=== PATIENT | female | born 1975 | race American Indian/Alaskan Native ===

== ENCOUNTER 2020-08-02 05:46 | Emergency (ER) | payer SELFPAY ==
[2020-08-02] MEDS ORDERED: ASPIRIN 325 MG TAB PO ONE (06:05)
--- NOTE | 2020-08-02 06:50 | XRay Report ---
CHEST PA AND LATERAL VIEWS INDICATION: chest pain. COMPARISON: None. FINDINGS: Support devices: None. Heart: Within normal limits. Lungs/Pleura: No acute pulmonary or pleural findings. IMPRESSION: 1. No acute findings. Signer Name: Armin Austin MD Signed: 08/02/2020 6:46 AM Workstation Name: [id number]
[2020-08-02 07:15] LABS: Basophils # (Auto) 0.1 K/mm3 (0.0-0.1); Basophils % (Auto) 0.7 % (0.0-1.8); Eosinophils % (Auto) 0.5 % (0.0-4.3); Hematocrit 42.5 % (30.3-42.9); Hemoglobin 14.4 gm/dl (10.1-14.3); Lymphocytes # (Auto) 2.2 K/mm3 (1.2-5.4); Mean Corpuscular HGB Conc 34 % (30-34); Mean Corpuscular Volume 91 fl (79-97); Monocytes # (Auto) 0.8 K/mm3 (0.0-0.8); Platelet Count 246 K/mm3 (140-440); Red Blood Count 4.68 M/mm3 (3.65-5.03); Red Cell Distribution Width 13.6 % (13.2-15.2)
[2020-08-02 08:17] LABS: Alanine Aminotransferase 13 units/L (7-56); Albumin 4.1 g/dL (3.9-5); BUN/Creatinine Ratio 13; Blood Urea Nitrogen 15 mg/dL (7-17); Calcium 9.8 mg/dL (8.4-10.2); Hemolysis Index 5
--- NOTE | 2020-08-02 09:55 | Emergency Department Report ---
ED Chest Pain HPI - General Chief Complaint: Chest Pain Stated Complaint: CHEST PAIN Time Seen by Provider: 08/02/20 09:09 Source: patient, EMS Mode of arrival: Wheelchair Limitations: No Limitations - History of Present Illness Initial Comments: 45-year-old -[place] female patient presents with complaints of sudden onset of substernal chest pain starting around 4 AM. Patient states she was working and suddenly felt pain in her chest bilaterally. She describes the pain as squeezing and states it lasted for about 45 minutes. Patient was given nitroglycerin via EMS and brought into the ED. Patient states her pain was a 10/10 in severity initially, and now rates her pain as a 3/10 in severity. Patient states she feels she is having mild difficulty taking in deep breaths and that the pain in her chest worsens with deep inhalation. Past medical history includes DVT/PE approximately 5 years ago. No other past medical history per patient. She denies any family history of heart disease. Patient states long car ride to [place] approximately 6 weeks ago. She denies any cough/hemoptysis, fever/chills/sweats, or swelling in her legs. 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 MD Complaint: chest pain -: Sudden - Related Data Previous Rx's Medication Instructions Recorded Last Taken Type Naproxen 500 mg PO BID PRN #10 tablet 08/02/20 Unknown Rx Allergies Allergy/AdvReac Type Severity Reaction Status Date / Time IV contrast Allergy Hives Uncoded 08/02/20 05:59 Heart Score - HEART Score History: Slightly suspicious () EKG: Normal Age: 45-65 Risk factors: No known risk factors Troponin: < normal limit HEART Score: 1 - EKG Read Time Time EKG Completed: 06:04 EKG Read Time: 06:06 - Critical Actions Critical Actions: 0-3 pts:0.9-1.7%risk of adverse cardiac event.Candidate for discharge ED Review of Systems ROS: Stated complaint: CHEST PAIN Other details as noted in HPI Constitutional: denies: chills, diaphoresis, fever, weakness Respiratory: see HPI. denies: cough, orthopnea Cardiovascular: chest pain. denies: edema, syncope Gastrointestinal: denies: abdominal pain, nausea, vomiting Neurological: denies: headache, numbness, paresthesias Hematological/Lymphatic: denies: easy bleeding, easy bruising ED Past Medical Hx - Past Medical History Previous Medical History?: Yes Additional medical history: DVT BLE, 2016. Kidney stones - Surgical History Past Surgical History?: Yes Additional Surgical History: partial hysterectomy 2015. tubal ligation ?2000/2001. c-sect x2 - Social History Smoking Status: Never Smoker Substance Use Type: None - Medications Home Medications: Home Medications Medication Instructions Recorded Confirmed Last Taken Type Naproxen 500 mg PO BID PRN #10 tablet 08/02/20 Unknown Rx ED Physical Exam - General Limitations: No Limitations General appearance: alert, in no apparent distress - Head Head exam: Present: atraumatic, normocephalic, normal inspection - Eye Eye exam: Present: normal appearance. Absent: scleral icterus - Neck Neck exam: Present: normal inspection - Respiratory Respiratory exam: Present: normal lung sounds bilaterally. Absent: respiratory distress, chest wall tenderness, accessory muscle use - Cardiovascular Cardiovascular Exam: Present: regular rate, normal rhythm. Absent: systolic murmur, diastolic murmur, rubs, gallop - GI/Abdominal GI/Abdominal exam: Present: soft, normal bowel sounds. Absent: distended, tenderness, guarding, rebound, rigid - Extremities Exam Extremities exam: Present: calf tenderness (Mild bilateral; no swelling noted; normal pedal pulses noted) - Back Exam Back exam: Present: full ROM - Neurological Exam Neurological exam: Present: alert, oriented X3, normal gait - Psychiatric Psychiatric exam: Present: normal affect, normal mood - Skin Skin exam: Present: warm, dry, intact, normal color. Absent: rash, cyanosis, diaphoretic ED Course Vital Signs 08/02/20 08/02/20 05:51 13:14 Temperature 98.7 F Pulse Rate 78 80 Respiratory 18 18 Rate Blood Pressure 146/72 Blood Pressure 140/74 [Left] O2 Sat by Pulse 98 99 Oximetry ED Medical Decision Making - Lab Data Result diagrams: 08/02/20 06:44 08/02/20 06:44 Lab Results 08/02/20 08/02/20 08/02/20 Range/Units 06:44 06:44 09:30 WBC 8.8 (4.5-11.0) K/mm3 RBC 4.68 (3.65-5.03) M/mm3 Hgb 14.4 H (10.1-14.3) gm/dl Hct 42.5 (30.3-42.9) % MCV 91 (79-97) fl MCH 31 (28-32) pg MCHC 34 (30-34) % RDW 13.6 (13.2-15.2) % Plt Count 246 (140-440) K/mm3 Lymph % (Auto) 25.0 (13.4-35.0) % Campbell % (Auto) 9.0 H (0.0-7.3) % Eos % (Auto) 0.5 (0.0-4.3) % Baso % (Auto) 0.7 (0.0-1.8) % Lymph # (Auto) 2.2 (1.2-5.4) K/mm3 Campbell # (Auto) 0.8 (0.0-0.8) K/mm3 Eos # (Auto) 0.0 (0.0-0.4) K/mm3 Baso # (Auto) 0.1 (0.0-0.1) K/mm3 Seg Neutrophils % 64.8 (40.0-70.0) % Seg Neutrophils # 5.7 (1.8-7.7) K/mm3 D-Dimer (0-234) ng/mlDDU Sodium 135 L (137-145) mmol/L Potassium 4.4 (3.6-5.0) mmol/L Chloride 97.6 L (98-107) mmol/L Carbon Dioxide 25 (22-30) mmol/L Anion Gap 17 mmol/L BUN 15 (7-17) mg/dL Creatinine 1.2 (0.6-1.2) mg/dL Estimated GFR 59 ml/min BUN/Creatinine Ratio 13 % Glucose 79 (65-100) mg/dL Calcium 9.8 (8.4-10.2) mg/dL Total Bilirubin 0.50 (0.1-1.2) mg/dL AST 22 (5-40) units/L ALT 13 (7-56) units/L Alkaline Phosphatase 74 (35-129) units/L Troponin T < 0.010 < 0.010 (0.00-0.029) ng/mL Total Protein 7.8 (6.3-8.2) g/dL Albumin 4.1 (3.9-5) g/dL Albumin/Globulin Ratio 1.1 % 08/02/20 08/02/20 Range/Units 11:17 11:17 WBC (4.5-11.0) K/mm3 RBC (3.65-5.03) M/mm3 Hgb (10.1-14.3) gm/dl Hct (30.3-42.9) % MCV (79-97) fl MCH (28-32) pg MCHC (30-34) % RDW (13.2-15.2) % Plt Count (140-440) K/mm3 Lymph % (Auto) (13.4-35.0) % Campbell % (Auto) (0.0-7.3) % Eos % (Auto) (0.0-4.3) % Baso % (Auto) (0.0-1.8) % Lymph # (Auto) (1.2-5.4) K/mm3 Campbell # (Auto) (0.0-0.8) K/mm3 Eos # (Auto) (0.0-0.4) K/mm3 Baso # (Auto) (0.0-0.1) K/mm3 Seg Neutrophils % (40.0-70.0) % Seg Neutrophils # (1.8-7.7) K/mm3 D-Dimer 181.55 (0-234) ng/mlDDU Sodium (137-145) mmol/L Potassium (3.6-5.0) mmol/L Chloride (98-107) mmol/L Carbon Dioxide (22-30) mmol/L Anion Gap mmol/L BUN (7-17) mg/dL Creatinine (0.6-1.2) mg/dL Estimated GFR ml/min BUN/Creatinine Ratio % Glucose (65-100) mg/dL Calcium (8.4-10.2) mg/dL Total Bilirubin (0.1-1.2) mg/dL AST (5-40) units/L ALT (7-56) units/L Alkaline Phosphatase (35-129) units/L Troponin T < 0.010 (0.00-0.029) ng/mL Total Protein (6.3-8.2) g/dL Albumin (3.9-5) g/dL Albumin/Globulin Ratio % - EKG Data EKG shows normal: sinus rhythm Rate: normal - EKG Data Interpretation: other (Left atrial enlargement) - Radiology Data Radiology results: report reviewed CHEST PA AND LATERAL VIEWS INDICATION: chest pain. COMPARISON: None. FINDINGS: Support devices: None. Heart: Within normal limits. Lungs/Pleura: No acute pulmonary or pleural findings. IMPRESSION: 1. No acute findings. - Medical Decision Making 45-year-old -[place] female patient presents with complaints of sudden onset of substernal chest pain starting around 4 AM. Patient states she was working and suddenly felt pain in her chest bilaterally. She describes the pain as squeezing and states it lasted for about 45 minutes. Patient was given nitroglycerin via EMS and brought into the ED. Patient states her pain was a 10/10 in severity initially, and now rates her pain as a 3/10 in severity. Patient states she feels she is having mild difficulty taking in deep breaths and that the pain in her chest worsens with deep inhalation. Past medical history includes DVT/PE approximately 5 years ago. No other past medical history per patient. She denies any family history of heart disease. Patient states long car ride to [place] approximately 6 weeks ago. She denies any cough/hemoptysis, fever/chills/sweats, or swelling in her legs. 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 Physical exam is normal. Given history of DVT/PE a D-dimer was ordered and is negative. Chest x-ray is normal. No significant abnormalities noted on CBC or CMP. Troponin is normal x3. Heart score = 1. Patient is well-appearing and stable for discharge home. Her vitals remain normal. Recommend follow-up with cardiology on Wednesday. Strict return precautions were discussed in detail with patient who verbalizes understanding. Critical care attestation.: If time is entered above; I have spent that time in minutes in the direct care of this critically ill patient, excluding procedure time. ED Disposition Clinical Impression: Other chest pain Disposition: TO HOME OR SELFCARE Is pt being admited?: No Condition: Stable Instructions: Nonspecific Chest Pain, Adult Prescriptions: Naproxen 500 mg PO BID PRN #10 tablet PRN Reason: pain Referrals: ANABELL RODRIGUEZ MD [Staff Physician] - 2-3 Days Forms: Work/School Release Form(ED)
[2020-08-02 13:15] VITALS: BP 140/74
--- NOTE | 2020-08-02 17:15 | Electrocardiograph Report ---
[facility] Test Date: 2020-08-02 Test Time: 06:04:26 Pat Name: NAE VASQUEZ Department: Room: Gender: F Beck Operator: NURSE : 1975 Requested By: ED DOC Order Number: [id number] Reading MD: Brandee Devlin Measurements Intervals [place] Rate: 81 P: 80 IN: 148 QRS: 4 QRSD: 97 T: 9 QT: 399 QTc: 464 Interpretive Statements Sinus rhythm Probable left atrial enlargement Low voltage, precordial leads Nonspecific J-point elevation suggestive of early repolarization No previous ECG available for comparison Electronically Signed On 08-02-2020 17:15:37 EDT by Brandee Devlin
== END 2020-08-02 13:14 | disposition home or self-care (01) ==
LOC: ED 05:46
DX: R07.89 Other chest pain (principal); Z90.710 Acquired absence of both cervix and uterus; Z79.899 Other long term (current) drug therapy
CPT/HCPCS: 36415; 71046; 80053; 84484; 85025; 85379; 93005